=== PATIENT | female | born 1975 | race Caucasian/White ===

== ENCOUNTER 2020-03-04 10:57 | Outpatient (CLI) | payer OTHER, SELFPAY ==
--- NOTE | ~2020-03-04 | MR_ITS ---
EXAMINATION: MR femur LT wo con DATE: 03/04/2020 11:56 INDICATION: Lump on left femur. TECHNIQUE: Magnetic resonance imaging (MRI) of the left thigh was performed without intravenous contr ast. A marker was placed over the mass. Sequences included axial T1-weighted FSE, axial T2-weighted FS FSE, axial T1-weighted FS FSE, coronal T1-weighted FSE, coronal T2-weighted FS FSE, sagittal T1-we ighted FSE and sagittal T2-weighted FS FSE. COMPARISON: None. FINDINGS: Bone alignment is normal with normal marrow signal throughout. No reactive edema, fracture, avascular necrosis or pathologic marrow replacing process. The musculature at both thighs and visualized lower pelvis appears normal and symmetric. Normal appearance to the subcutaneous fat underlying the marker indicating the region of concern which is located along the anterolateral aspect of the proximal lef t thigh. No abnormal masses identified. Physiologic amount fluid in the bilateral hip joint spaces. N o abnormal fluid collections identified. Visualized portion of the inferior pelvis is unremarkable. N o pathologically enlarged abdominal or pelvic lymphadenopathy. IMPRESSION: 1. Normal study. No masses, fluid collections or other etiology identified for reported palpable abno rmality at the anterolateral aspect of the proximal left thigh. Reviewed, dictated and finalized at location A. 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 Normal study. No masses, fluid collections or other etiology identified for reported palpable abnormality at the anterolateral aspect of the proximal left thigh.
== END 2020-03-04 10:58 | disposition home or self-care (01) ==
PROVIDERS: PCP Internal Medicine; Visit Provider Surgery
DX: R22.42 Localized swelling, mass and lump, left lower limb (principal)
CPT/HCPCS: 73721

== ENCOUNTER → 2020-11-04 11:38 | Outpatient (CLI) | payer OTHER, SELFPAY ==
--- NOTE | ~2020-11-04 | US_ITS ---
EXAMINATION: US breast LT limited HISTORY: Palpable abnormalities at the 3:00 location in the far lateral left breast and in the left a xilla. TECHNIQUE: Limited left breast ultrasound is performed in the area of clinical concern. FINDINGS: There is no evidence of focal abnormal cystic or solid mass in the vicinity of the reported palpable abnormality of concern. In addition, no suspicious sonographic finding is identified in the left axilla in the area of the palpable abnormality. IMPRESSION: No specific sonographic correlate is identified for the reported palpable abnormalities of concern. F urther evaluation at this time should be based on clinical assessment. Continued follow-up physical e xamination is recommended. BI-RADS Category 1: Negative Reviewed, dictated and finalized at location A. IMPRESSION: No specific sonographic correlate is identified for the reported palpable abnor malities of concern. Further evaluation at this time should be based on clinica l assessment. Continued follow-up physical examination is recommended. BI-RADS Category 1: Negative
== END ==
PROVIDERS: PCP Internal Medicine; Visit Provider Internal Medicine
DX: N63.25 Unspecified lump in the left breast, overlapping quadrants (principal)
CPT/HCPCS: 76642

== ENCOUNTER 2021-06-30 10:03 | Outpatient (CLI) | payer OTHER, SELFPAY ==
--- NOTE | ~2021-06-30 | CT_ITS ---
EXAMINATION: CT abdomen pelvis w con EXAM DATE: 06/30/2021 11:17 INDICATION: Left lower quadrant pain. TECHNIQUE: Spiral CT of the abdomen and pelvis was performed following intravenous injection of 100 m L Omnipaque 350. Axial, coronal and sagittal images of the abdomen and pelvis were reviewed. The do se-length product (DLP) for this examination was 512.71 mGy-cm. The exposure was tailored according to patient size (auto mA exposure control), and iterative reconstruction (ASIR) was used as additiona l dose reduction technique. There is no prior study for comparison. FINDINGS: The liver, spleen, adrenal glands and pancreas are unremarkable. Gallbladder is unremarkab le. No biliary obstruction. Kidneys enhance symmetrically. There is no hydronephrosis. Uterus is ant everted. Hypodensity along the anterior lower uterine segment, could be from prior section. There is/are bilobulated cysts in the right ovary, one measuring 3.4 cm and the other measuring 2.8 c m. Left ovary normal in size. The bladder is unremarkable. There is no retroperitoneal or pelvic l ymphadenopathy. The appendix is normal. The stomach and small bowel are unremarkable. There is expected amount of c olonic stool. No free intraperitoneal gas. The heart is normal in size. There are no pericardial or pleural effusions. The lung bases are unremarkable. Moderate lumbar levoscoliosis. IMPRESSION: 1. No acute intra-abdominal findings. 2. Right ovarian bilobulated cyst or more likely 2 contiguous cysts, could be physiologic and/or hem orrhagic. Consider 6 week follow-up pelvic sonogram. 3. Anterior lower uterine segment region probably scarring. 4. Moderate lumbar levoscoliosis. Reviewed, dictated and finalized at location A. IMPRESSION: 1. No acute intra-abdominal findings. 2. Right ovarian bilobulated cyst or more likely 2 contiguous cysts, could be physiologic and/or hemorrhagic. Consider 6 week follow-up pelvic sonogram. 3. Anterior lower uterine segment region probably scarring. 4. Moderate lumbar levoscoliosis.
[2021-06-30 10:38] LABS: Basophils Absolute Auto 0.1 K/mm3 (0.0-0.1); Eosinophils Absolute Auto 0.3 K/mm3 (0-0.3); Eosinophils Percent Auto 4.5 % (0-4.4); Hematocrit 41.4 % (37.0-47.0); Hemoglobin 13.5 g/dL (12.0-15.0); Immature Granulocyte Absolute 0.01 K/mm3 (0.00-0.031); Immature Granulocyte Percent A 0.2 % (0-0.5); Mean Corpuscular HGB Conc 32.6 g/dl (32-36); Mean Corpuscular Volume 98.1 fl (80-100); Mean Platelet Volume 9.4 fl (7.4-10.4); Monocytes Absolute Auto 0.4 K/mm3 (0.1-0.6); Monocytes Percent Auto 6.8 % (2.6-8.5); Neutrophils Absolute Auto 4.3 K/mm3 (1.3-6.7); Neutrophils Percent Auto 66.5 % (45.5-73.1); Platelet Count Result 289 k/mm3 (150-375); Red Blood Count 4.22 M/mm3 (4.2-5.4); Red Cell Distribution Width 12.1 % (11.5-14.5); White Blood Count 6.5 K/mm3 (4.5-10.0)
[2021-06-30 10:48] LABS: Alanine Aminotransferase 17 U/L (4-35); Albumin Level 4.4 g/dL (3.5-5.1); Alkaline Phosphatase 68 U/L (38-126); Amylase 96 U/L (30-110); Anion Gap 7 mmol/L (8-16); Aspartate Amino Transferase 24 U/L (14-36); Bilirubin,Total 0.5 mg/dL (0.2-1.3); Blood Urea Nitrogen 14 mg/dL (7-17); Calcium 9.1 mg/dL (8.4-10.2); Carbon Dioxide 29 mmol/L (22-30); Chloride 102 mmol/L (98-107); Estimated Glomerular Filt Rate 59; Glucose 97 mg/dL (65-110); Lipase 157 U/L (23-300); Potassium 4.5 mmol/L (3.4-5.0); Sodium 138 mmol/L (137-145)
[2021-07-03 08:22] LABS: FSH 24.8 mIU/mL (***); Prolactin 9.7 ng/mL (***)
== END 2021-06-30 10:04 | disposition home or self-care (01) ==
PROVIDERS: PCP Internal Medicine; Visit Provider Internal Medicine
DX: R10.32 Left lower quadrant pain (principal); N83.201 Unspecified ovarian cyst, right side; R93.89 Abnormal findings on diagnostic imaging of other specified body structures; M41.86 Other forms of scoliosis, lumbar region
CPT/HCPCS: 36415; 74177; 80053; 82150; 83001; 83690; 84146; 84443; 85025; Q9967

== ENCOUNTER → 2021-08-11 15:20 | Outpatient (CLI) | payer OTHER, SELFPAY ==
--- NOTE | ~2021-08-11 | US_ITS ---
EXAMINATION: US pelvic complete w TV DATE: 08/11/2021 15:58 INDICATION: Right ovarian cyst TECHNIQUE: Multiple transabdominal and endovaginal sonographic images of the pelvis were obtained. COMPARISON: None. FINDINGS: The uterus measures 8.6 x 5.4 x 6.1 cm. The endometrial complex measures 8 mm. The right ov singh measures 2.3 x 1.6 x 1.7 cm. No persistent right adnexal cyst is identified. The left ovary measu res 3.8 x 1.7 x 2.5 cm. There is normal vascular flow in the ovaries. There is no free fluid in the p keith. IMPRESSION: 1. No persistent right adnexal cyst identified. Unremarkable pelvic ultrasound. Reviewed, dictated and finalized at location F.
== END ==
PROVIDERS: PCP Internal Medicine; Visit Provider Internal Medicine
DX: N83.201 Unspecified ovarian cyst, right side (principal)
CPT/HCPCS: 76830; 76856

== ENCOUNTER → 2022-05-26 12:59 | Outpatient (CLI) | payer OTHER, SELFPAY ==
--- NOTE | ~2022-05-26 | XR_ITS ---
Lumbosacral Spine: AP and lateral views Clinical History: Pain Findings: There is 18 degrees levoscoliosis of the lumbar spine. There is mild to moderate degenerati ve disc narrowing at L3-L4 and L4-L5. There is probable facet arthropathy from L3 through L5. The int ervertebral disc spaces are preserved. The sacroiliac joints are normally outlined. Impression: 18 degree levoscoliosis. Degenerative spondylosis at the lower lumbar spine, as detailed above. Reviewed, dictated and finalized at location . Impression: 18 degree levoscoliosis. Degenerative spondylosis at the lower lumbar spine, as detailed above.
== END ==
PROVIDERS: PCP Internal Medicine; Visit Provider Internal Medicine
DX: M54.50 Low back pain, unspecified (principal)
CPT/HCPCS: 72100

== ENCOUNTER → 2023-04-16 13:57 | Outpatient (CLI) | payer OTHER, SELFPAY ==
--- NOTE | ~2023-04-16 | XR_ITS ---
EXAMINATION:XR_[id number]_CR DATE: 04/16/2023 14:18 INDICATION: Neck pain TECHNIQUE: AP, lateral, and odontoid views of the cervical spine are provided. COMPARISON: None FINDINGS: There is reversal of the normal cervical lordosis. There are 2 mm of anterolisthesis of C3 on C4. There are 2 mm of retrolisthesis of C6 on C7. The odontoid process is intact. No fracture is i dentified. The vertebral body heights are maintained. There is moderate loss of intervertebral disc s pace height at C6-7 and mild loss of disc space height at C4-5 and C5-6. Degenerative osteophytes pro ject from the anterior endplates of multiple vertebral bodies. The prevertebral soft tissues are norm al. There is multilevel moderate facet and uncovertebral joint osteoarthritis. IMPRESSION: 1. Moderate cervical spondylosis without acute findings. Reviewed, dictated and finalized at location L. SPERSON JEWELRY
== END ==
PROVIDERS: PCP Internal Medicine; Visit Provider Internal Medicine
DX: M47.892 Other spondylosis, cervical region (principal)
CPT/HCPCS: 72040

== ENCOUNTER 2024-01-04 00:16 | Day surgery (SDC) | payer OTHER, SELFPAY ==
[2023-12-19 14:25] VITALS: BMI 26.4
[2024-01-04 07:29] VITALS: BP 134/85; PULSE 104; RESP 20; TEMP 35.7; O2SAT 97; BMI 25.4
[2024-01-04] MEDS: LACTATED RINGERS 1,000 ML 150 ML IV CONT (07:39)
--- NOTE | 2024-01-04 07:45 | WPDANESEPPF ---
Anes - Initial Pre Proc Eval Procedure: Operation Date: 01/04/24 08:30 Proposed Procedures p Colonoscopy - Pete Ha MD Date/Time: 01/04/24 07:45 Surgeon: Pete Ha MD Pre Op Diagnosis: Hemorrhage of anus/rectum, Patient Data Age: 48 Gender: F Height: 1.8 m Weight: 82.9 kg Last Vital Signs Temp 96.3 F L 01/04/24 07:29 Pulse 104 H 01/04/24 07:29 Resp 20 01/04/24 07:29 BP 134/85 01/04/24 07:29 Pulse Ox 97 01/04/24 07:29 O2 Del Method Room Air 01/04/24 07:29 Allergies Allergy/AdvReac Type Severity Reaction Status Date / Time No Known Allergies Allergy Verified 01/04/24 07:28 Home Medications Medication Instructions Recorded Confirmed Type bupropion HCl 150 mg 24 hr tablet, 150 mg PO QAM 03/02/20 01/04/24 History extended release cholecalciferol (vitamin D3) 50 50 mcg PO DAILY 03/02/20 01/04/24 History mcg (2,000 unit) capsule duloxetine 30 mg capsule,delayed 60 mg PO DAILY 03/02/20 01/04/24 History release (Cymbalta) atogepant 60 mg tablet (Qulipta) 60 mg PO DAILY 12/19/23 01/04/24 History multivit with minerals-iron 18 1 tablet PO DAILY 12/19/23 01/04/24 History mg-folic ac 400 mcg-vit K 25 mcg tablet (Adults Multivitamin) Patient hx anesthesia problems: none Family hx anesthesia problems: none Results Review: All pre-operative results and documents have been reviewed as part of the pre-operative evaluation. [facility] Past Medical History Medical History Depression Factor V Leiden History of blood clots Kidney stone Surgical History Surgical History H/O umbilical hernia repair History of x3 History of skin surgery robby removed Family History Family History Father Lymphoma Mother High cholesterol Hypertension Sibling Depression Grandparent Cerebrovascular accident Hypertension Breast cancer Social History Social History Smoking status: Never smoker Alcohol intake: never Alcohol use details: social Substance use: never Substance use type: does not use Living arrangements: with family Occupation/Education: unemployed Gender identity (if verbalized by the patient): Female Spiritual care concerns: No Anes - Eval Final PreProcedure Day of Procedure 01/04/24 07:45 Patient weight: overweight Heart: regular rate and rhythm Lungs: clear to auscultation Airway: Mallampati scale and special considerations (Lower R implant noted. ) Neurological: alert and oriented Last oral intake: >/= 8 hours ASA classification: II Emergent: no Anesthetic plan: proceed Anesthesia type and monitoring: general GIVS Results Review: All pre-operative results and documents have been reviewed as part of the pre-operative evaluation. 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 Noted only bec of family member who has homozygous condition. Informed Consent: The patient's anesthetic plan and its attendant risks and benefits were discussed with the patient/family/POA. Questions were solicited and answers provided to the satisfaction of the patient/family/POA.
--- NOTE | 2024-01-04 08:08 | PM.HPGS ---
History of Present Illness History of Present Illness Consent: Risks, benefits, and alternatives have been discussed and questions answered. Patient agrees to proceed with procedure. Chief complaint: Hemorrhage of anus/rectum, Narrative: Cherelle Leon is a 48 year old female here for screening colonoscopy, last one 10 years ago, also noted some blood in stool Review of Systems Review of Systems: All systems reviewed & are unremarkable except as noted in HPI and below PMFSH Past Medical History Medical History (Updated 01/04/24 @ 08:21 by Pete Ha MD) Colon cancer screening Depression Factor V Leiden History of blood clots Kidney stone Surgical History Surgical History H/O umbilical hernia repair History of x3 History of skin surgery robby removed Family History Family History Father Lymphoma Mother High cholesterol Hypertension Sibling Depression Grandparent Cerebrovascular accident Hypertension Breast cancer Social History Social History Smoking status: Never smoker Alcohol intake: never Alcohol use details: social Substance use: never Substance use type: does not use Living arrangements: with family Occupation/Education: unemployed Gender identity (if verbalized by the patient): Female Spiritual care concerns: No Meds Home Medications and Allergies Home Medications Medication Instructions Recorded Confirmed Type bupropion HCl 150 mg 24 hr tablet, 150 mg PO QAM 03/02/20 01/04/24 History extended release cholecalciferol (vitamin D3) 50 50 mcg PO DAILY 03/02/20 01/04/24 History mcg (2,000 unit) capsule duloxetine 30 mg capsule,delayed 60 mg PO DAILY 03/02/20 01/04/24 History release (Cymbalta) atogepant 60 mg tablet (Qulipta) 60 mg PO DAILY 12/19/23 01/04/24 History multivit with minerals-iron 18 1 tablet PO DAILY 12/19/23 01/04/24 History mg-folic ac 400 mcg-vit K 25 mcg tablet (Adults Multivitamin) Allergies Allergy/AdvReac Type Severity Reaction Status Date / Time No Known Allergies Allergy Verified 01/04/24 07:28 Vital Signs Vital Signs - 24 hr 01/04/24 07:29 Temperature 96.3 F L Pulse Rate 104 H Respiratory Rate 20 Blood Pressure 134/85 Pulse Oximetry 97 Oxygen Delivery Room Air Exam Const: General: comfortable and no acute distress HENMT: Face/Nose/Sinus: Normal nares present Eyes: General: appearance normal, both eyes and all related structures Neck: Neck: no JVD Resp: Auscultation: clear to auscultation bilaterally Cardio: Rate: regular rate Rhythm: regular rhythm GI: Inspection: non-distended GI Palp: Yes Soft to palpation Skin: General skin exam: normal color Neuro: General: gait normal Speech: normal speech Extrem: General: normal to inspection Psych: Mental Status: mental status grossly normal Assessment and Plan Assessment and plan (1) External hemorrhoids: Code(s): K64.4 - Residual hemorrhoidal skin tags Status: Acute (2) Colon cancer screening: Code(s): Z12.11 - Encounter for screening for malignant neoplasm of colon Status: Acute
[2024-01-04 08:22] VITALS: BP 95/66; PULSE 75; RESP 21; O2SAT 97
[2024-01-04 08:32] VITALS: BP 94/66; PULSE 68; RESP 21; O2SAT 100
[2024-01-04 08:42] VITALS: BP 102/69; PULSE 69; RESP 30; O2SAT 100
== END 2024-01-04 08:49 | disposition home or self-care (01) ==
PROVIDERS: PCP Internal Medicine; Referring Provider Internal Medicine; Visit Provider Internal Medicine Gastroenterology
PROC: 0DJD8ZZ Inspection of Lower Intestinal Tract, Via Natural or Artificial Opening Endoscopic (ICD-10-PCS; CPT 45378; principal; 2024-01-04 08:30)
DX: Z12.11 Encounter for screening for malignant neoplasm of colon (principal); K63.5 Polyp of colon; K64.4 Residual hemorrhoidal skin tags; F32.A Depression, unspecified; D68.51 Activated protein C resistance; Z98.890 Other specified postprocedural states; Z87.442 Personal history of urinary calculi; Z80.7 Family history of other malignant neoplasms of lymphoid, hematopoietic and related tissues; Z80.3 Family history of malignant neoplasm of breast; Z82.49 Family history of ischemic heart disease and other diseases of the circulatory system
CPT/HCPCS: 45385; 88305; J2704; J7120

== ENCOUNTER 2024-03-14 12:57 | Outpatient (CLI) | payer OTHER, SELFPAY ==
--- NOTE | ~2024-03-14 | US_ITS ---
EXAM: PELVIC ULTRASOUND HISTORY: postmenopausal bleeding COMPARISON: 08/11/2021. FINDINGS: UTERUS: 9.9 x 5.4 x 3.8 cm. The uterus is heterogeneous in echogenicity, without a distinct mass visualized. The endometrial complex measures 7 mm. RIGHT OVARY: Despite prolonged interrogation, neither ovary was visualized. LEFT OVARY: Despite prolonged interrogation, neither ovary was visualized. IMPRESSION: Heterogeneous echogenicity within the uterus without a distinct mass identified. The endometrial complex is not thickened. Despite prolonged interrogation neither ovary was visualized Reviewed, dictated and finalized at location A. 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 The endometrial complex is not thickened. Despite prolonged interrogation neither ovary was visualized
== END 2024-03-14 12:58 | disposition home or self-care (01) ==
LOC: GOSHIMG 12:58
PROVIDERS: PCP Internal Medicine
DX: N95.0 Postmenopausal bleeding (principal)
CPT/HCPCS: 76830; 76856